=== PATIENT | male | born 1960 | race Caucasian/White ===

== ENCOUNTER 2020-06-23 11:37 | Emergency (ER) | payer SELFPAY ==
--- NOTE | 2020-06-23 11:47 | ED.URI ---
HPI - URI/Sore Throat General Chief Complaint: Upper Respiratory Infection Stated Complaint: sore throat Time Seen by Provider: 06/23/20 11:59 Source: patient and RN notes reviewed Mode of arrival: ambulatory Limitations: no limitations History of Present Illness HPI Narrative: 60-year-old male presents with concern for sore throat. Reports sore throat started 2 days ago. Reports painful swallowing. He denies any intervention. He denies nasal congestion, rhinorrhea, headache, stomachache, body aches, chills, fever, cough, shortness of breath. Denies any known sick contacts MD elicited complaint: sore throat Related Data Allergies Allergy/AdvReac Type Severity Reaction Status Date / Time No Known Allergies Allergy Unknown Verified 06/23/20 12:00 Review of Systems Review of Systems: Narrative: CONSTITUTIONAL: Denies malaise, chills, sweats, or fever. EYES: Denies visual changes, redness, or discharge. ENT: Denies rhinorrhea, congestion, sinus pain, otalgia. Reports sore throat. CARDIOVASCULAR: Denies chest pain, palpitations, or edema. RESPIRATORY: Denies cough or dyspnea. GASTROINTESTINAL: Denies abdominal pain, nausea, vomiting, diarrhea SKIN: Denies rash or itching. MUSCULOSKELETAL: Denies myalgia. NEUROLOGIC: Denies headache. All systems reviewed & are unremarkable except as noted in HPI and below PMFSH Social History Social History Gender identity (if verbalized by the patient): Male Comments At time of signature, agree with nursing past medical, surgical, social and family history. There is no relevant family history pertinent to the presenting complaint Exam Narrative: Exam Narrative: GENERAL: Well-appearing, well-nourished, and in no acute distress. HEAD: Normocephalic EYES: PERRLA, conjunctivae clear ENT: Nares clear, turbinates pink, no discharge. Mucous membranes moist. TM pearly salgado with sharp light reflex bilaterally; no tragal tenderness. Oropharynx not erythematous, canker sore like ulceration noted on uvula, uvular erythema without edema. Tonsils not enlarged and without exudate, no drooling, no hoarseness, no trismus, uvula midline. NECK: Supple. No lymphadenopathy CHEST: Clear to auscultation, breath sounds equal. No wheezing, rhonchi, rales, or stridor. No respiratory distress, speaks in full sentences. HEART: Regular rate and rhythm. No murmur heard. SKIN: Warm, dry, no rash. NEURO: Alert and oriented x3. PSYCH: Normal mood and affect Course Course Emergency Course: Patient is aware of diagnosis, understands and agrees to treatment plan. Anticipatory guidance given. Patient agrees to follow-up as directed and is aware of reasons to seek care at the emergency department. Portions of this record may have been created with voice recognition software Vital Signs Vital signs: Vital Signs Temperature 99.3 F 06/23/20 11:59 Pulse Rate 108 H 06/23/20 11:59 Respiratory Rate 16 06/23/20 11:59 Blood Pressure 154/109 H 06/23/20 11:59 Pulse Oximetry 96 06/23/20 11:59 Temperature 99.3 F 06/23/20 11:59 Pulse Rate 108 H 06/23/20 11:59 Respiratory Rate 16 06/23/20 11:59 Blood Pressure 154/109 H 06/23/20 11:59 Pulse Oximetry 96 06/23/20 11:59 Reviewed. Pt has been instructed to follow up with his primary care provider within the next week regarding his elevated blood pressure today. MDM - URI/Sore Throat MDM Narrative Medical decision making narrative: Differential diagnosis considered: Delgadillo virus, strep pharyngitis, allergic rhinitis, upper respiratory tract infection, sinusitis, rhinosinusitis, nasopharyngitis. viral pharyngitis, otitis media, otitis externa, pneumonia, bronchitis, viral cough syndrome, viral syndrome, and influenza. Exam findings show no acute concerns or changes; patient is non-toxic appearing and is in no distress. Patient is appropriate for outpatient treatment and follow-up. Lab Data Attestation: I reviewed the patient's lab results. Labs: Strep
[2020-06-23 11:59] VITALS: BP 154/109; PULSE 108; RESP 16; TEMP 37.4; O2SAT 96
== END 2020-06-23 12:15 | disposition home or self-care (01) ==
PROVIDERS: Emergency Provider Nurse Practitioner; PCP Internal Medicine
DX: K12.1 Other forms of stomatitis (principal)
CPT/HCPCS: 87081; 87880; 99213; G0463

== ENCOUNTER 2020-06-25 08:15 | Emergency (ER) | payer SELFPAY ==
[2020-06-25 08:22] VITALS: BP 148/95; PULSE 87; RESP 18; TEMP 36.2; O2SAT 100
[2020-06-25 08:40] VITALS: BP 162/102; PULSE 86; RESP 16; TEMP 36.5; O2SAT 96
--- NOTE | 2020-06-25 09:28 | ED.GENADULT ---
HPI - General Adult General Chief complaint: Unspecified Stated complaint: sore on uvula Time Seen by Provider: 06/25/20 09:08 Source: patient Mode of arrival: ambulatory Limitations: no limitations History of Present Illness HPI narrative: Patient presents with chief complaint of sore on his uvula that presented on Wednesday. Patient states he was seen at the urgent care over the weekend and diagnosed with canker sore. Patient states that his appetite has been decreased just due to the discomfort with swallowing. Patient does not have any airway issues. Patient states he went a second opinion because the discomfort from the lesion is annoying and he wanted to know if he had any others developing. 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 Related Data Allergies Allergy/AdvReac Type Severity Reaction Status Date / Time No Known Allergies Allergy Unknown Verified 06/25/20 08:47 Review of Systems Review of Systems: Narrative: CONSTITUTIONAL: Denies fever, chills, or sweats. EYES: Denies visual changes, redness, or discharge. ENT: Denies rhinorrhea, congestion, sore throat, or otalgia. CARDIOVASCULAR: Denies chest pain, palpitations, or edema. RESPIRATORY: Denies cough or dyspnea. GASTROINTESTINAL: Denies abdominal pain, nausea, vomiting, or diarrhea. GENITOURINARY: Denies dysuria or hematuria. SKIN: Reports cold sore denies rash or itching. MUSCULOSKELETAL: Denies back pain, joint pain, or myalgia. NEUROLOGIC: Denies headache, numbness, dizziness, or weakness. PSYCHIATRIC: Denies anxiety or depression. [facility] Social History Social History Gender identity (if verbalized by the patient): Male Exam Narrative: Exam Narrative: GENERAL: Well-appearing, well-nourished, and in no acute distress. HEAD: Normocephalic, atraumatic. EYES: PERRLA and EOMI. ENT: Nares clear, no rhinorrhea or epistaxis. Mucous membranes moist. Uvula with single ulceration to center with some surrounding erythma. No deviation. Tonisils normal appearing. Bilateral TMs pearly salgado nonbulging NECK: Supple. No adenopathy or masses. CHEST: Clear to auscultation. No respiratory distress. EXTREMITIES: Normal range of motion. No edema. SKIN: Warm, dry, no rash. NEURO: No focal deficits. Alert and oriented x3. PSYCH: Normal mood and affect. Course Vital Signs Vital signs: Vital Signs Temperature 97.1 F L 06/25/20 08:22 Pulse Rate 87 06/25/20 08:22 Respiratory Rate 18 06/25/20 08:22 Blood Pressure 148/95 H 06/25/20 08:22 Pulse Oximetry 100 06/25/20 08:22 Temperature 97.7 F 06/25/20 08:40 Pulse Rate 86 06/25/20 08:40 Respiratory Rate 16 06/25/20 08:40 Blood Pressure 162/102 H 06/25/20 08:40 Pulse Oximetry 96 06/25/20 08:40 Medical Decision Making MDM Narrative Medical decision making narrative: Patient airways pain. Patient will start antivirals to help his ulceration to hopefully lessen severity of discomfort and length. Discussed it is preferable it is started within 72 hours of rash but we will try. Patient does not have any fevers or chills. Patient was given lidocaine viscous to help with some of the area to help encourage his eating and drinking. Patient instructed to follow-up with primary care for reevaluation if symptoms persist. Vital Signs Vital Signs: Vital Signs Temperature 97.1 F L 06/25/20 08:22 Pulse Rate 87 06/25/20 08:22 Respiratory Rate 18 06/25/20 08:22 Blood Pressure 148/95 H 06/25/20 08:22 Pulse Oximetry 100 06/25/20 08:22 Temperature 97.7 F 06/25/20 08:40 Pulse Rate 86 06/25/20 08:40 Respiratory Rate 16 06/25/20 08:40 Blood Pressure 162/102 H 06/25/20 08:40 Pulse Oximetry 96 06/25/20 08:40 Discharge Plan Discharge Clinical Impression: Aphthous ulcer Patient Disposition: Home, Self-Care Condition: Stable Instructions: Antibiotic Form, Canker Sores (ED) Additional Instructions: Jocelyn
== END 2020-06-25 09:47 | disposition home or self-care (01) ==
PROVIDERS: Emergency Provider Emergency Medicine; PCP Internal Medicine
DX: K12.0 Recurrent oral aphthae (principal)
CPT/HCPCS: 99283